=== PATIENT | female | born 1985 | race Two or more races ===

== ENCOUNTER 2022-03-05 10:57 | Emergency (ER) | payer OTHER ==
[2022-03-05 11:18] VITALS: BP 129/86; PULSE 81; RESP 18; TEMP 98.8; BMI 23.2
== END 2022-03-05 14:20 | disposition home or self-care (01) ==
LOC: JER 10:57
DX: U07.1 COVID-19 (principal)
CPT/HCPCS: 0241U-QW; 71046-TC-FY; 99284-25

== ENCOUNTER 2023-07-02 17:24 | Emergency (ER) | payer OTHER ==
[2023-07-02 18:03] VITALS: BP 124/63; PULSE 72; RESP 17; TEMP 97.6; BMI 21.7
[2023-07-02] MEDS ORDERED: ACETAMINOPHEN 500 MG TABLET (FP) PO ONE (20:11)
[2023-07-02] MEDS ORDERED: ACETAMINOPHEN 500 MG TABLET (FP) ONE (20:11)
== END 2023-07-02 20:50 | disposition home or self-care (01) ==
LOC: JERFT 17:24
DX: M25.562 Pain in left knee (principal); W00.0XXA Fall on same level due to ice and snow, initial encounter; W01.198A Fall on same level from slipping, tripping and stumbling with subsequent striking against other object, initial encounter
CPT/HCPCS: 73562-TC-LT-FY; 99283-25